=== PATIENT | female | born 2000 | race Caucasian/White ===

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

== ENCOUNTER 2022-08-05 11:46 | Inpatient (IN) ==
[~2022-08-05 11:46] MED LIST: Succinylcholine 200 mg VIAL 20 mg/ml 10 ml VIAL (200 mg) ONE
[2022-08-05] MEDS ORDERED: NS 0.9% 1000 ml BAG 1,000 ML IV ONE (12:02)
[2022-08-05] MEDS ORDERED: Naloxone 0.4 mg VIAL 0.4 mg/ml 1 ml VIAL IV PUSH ONE (12:02)
[2022-08-05 12:47] LABS: Hematocrit 39 % (31-38); Hemoglobin 12.4 g/dL (10.3-14.1); Mean Corpuscular HGB Conc 32 g/dL (32-37); Mean Corpuscular Hemoglobin 33 pg (24-30); Mean Corpuscular Volume 102 fL (68-85); Mean Platelet Volume 7.7 fL (7.4-10.4); Platelet Count 324 10^3/uL (150-450); Red Blood Count 3.81 10^6 /uL (3.97-5.01); Red Cell Distribution Width 13 % (10-15); White Blood Count 32.6 10^3/uL (5.0-17.5)
[2022-08-05] MEDS ORDERED: Piperacillin/Tazobac ADVAN 3.375 GM in NS 0.9% 100 ml BAG 100 ML IV ONE ×2 (12:51→16:19)
[2022-08-05 12:59] LABS: PCO2 Arterial 51 mmHg (35-45); PO2 Arterial 113 mmHg (80-100)
[2022-08-05] MEDS ORDERED: Norepinephrine 16MCG/ML BAGD5W 0 MCG/0 ML BAG IV ONE (13:03)
[2022-08-05] MEDS ORDERED: Norepinephrine 16MCG/ML BAG NS 4,000 MCG/250 ML BAG IV ONE (13:04)
[2022-08-05 13:06] LABS: Urine Benzodiazepine Screen Presumptive Positive (None Detect); Urine Cannabinoids Screen Presumptive Positive (None Detect); Urine Opiates Screen None Detected (None Detect)
[2022-08-05 13:11] LABS: AST 667 U/L (13-39); Albumin 3.2 g/dL (3.2-5.2); Albumin/Globulin Ratio 1.6 (1-3); Alkaline Phosphatase 111 U/L (122-469); Anion Gap 20 mmol/L (2-11); Blood Urea Nitrogen 17 mg/dL (6-24); CO2 Carbon Dioxide 17 mmol/L (23-33); Calcium 8.1 mg/dL (8.6-10.3); Chloride 99 mmol/L (101-111); Glucose 459 mg/dL (70-100); Sodium 136 mmol/L (130-145); Total Protein 5.2 g/dL (6.4-8.9)
[2022-08-05 13:12] LABS: High Sens Troponin Baseline 1464 pg/mL (<15)
[2022-08-05] MEDS ORDERED: Sodium Bicarbonate 8.4% SYR 50 ml SYRINGE ONE (13:15)
[2022-08-05 13:29] LABS: RBC Morphology Normal (Normal)
[2022-08-05 13:30] LABS: ABS Basophils 0.1 10^3/ul (0-0.2); ABS Eosinophils 0.1 10^3/ul (0-0.6); ABS Lymphocytes 5.3 10^3/ul (4.0-13.5); ABS Neutrophils 25.1 10^3/ul (1.0-8.5); Eosinophil % 0.3 %; Lymphocyte % 16.4 %; Nucleated Red Blood Cells % 0.1
[2022-08-05] MEDS ORDERED: Vasopressin 100 UNITS in D5W 250 ml BAG 245 ML IV SCH (13:30)
[2022-08-05] MEDS: Sodium Bicarbonate 8.4% SYR 50 ml SYRINGE IV ONE ×3 (13:45→13:47)
[2022-08-05] MEDS ORDERED: fentaNYL 100 mcg/2 ml 50 MCG/ML VIAL ONE (13:49)
[2022-08-05] MEDS ORDERED: Propofol 10 mg/ml 100 ML BTL 100 ML ONE (13:53)
[2022-08-05] MEDS ORDERED: Norepinephrine 16MCG/ML BAG NS 4,000 MCG/250 ML BAG IV SCH (14:00)
[2022-08-05] MEDS ORDERED: Sodium Bicarb 8.4% Vial 50 ML 150 MEQ in D5W 1000 ml BAG 850 ML IV SCH (14:00)
[2022-08-05] MEDS ORDERED: fentaNYL 100 mcg/2 ml 50 MCG/ML VIAL IV SLOW PU ONE (14:14)
[2022-08-05] MEDS ORDERED: Norepinephrine 16MCG/ML BAGD5W 4,000 MCG/250 ML BAG IV ONE (14:46)
[2022-08-05 14:51] LABS: ALT 910 U/L (7-52)
[2022-08-05] MEDS ORDERED: Hydrocortisone INJ 250 MG VIAL IV ONE (15:02)
[2022-08-05] MEDS ORDERED: Propofol 10 MG/ML 20 ML BTL IV PUSH ONE (15:12)
[2022-08-05 15:35] LABS: PCO2 Arterial 52 mmHg (35-45); PO2 Arterial 112 mmHg (80-100)
[2022-08-05 15:39] LABS: Hematocrit 44 % (35-47); Hemoglobin 13.9 g/dL (12.0-16.0); Mean Corpuscular HGB Conc 32 g/dL (31-36); Mean Corpuscular Hemoglobin 31 pg (27-31); Mean Corpuscular Volume 98 fL (80-97); Mean Platelet Volume 7.7 fL (7.4-10.4); Platelet Count 334 10^3/uL (150-450); Red Blood Count 4.46 10^6 /uL (3.70-4.87); Red Cell Distribution Width 12 % (10-15); White Blood Count 47.6 10^3/uL (3.5-10.8)
[2022-08-05 16:00] LABS: High Sensitivity Troponin 1 Hr 2052 pg/mL (<15)
[2022-08-05] MEDS ORDERED: PHENYLEPHRINE DRIP IVPREMIX 50 MG/250 ML BAG IV SCH (16:00)
[2022-08-05] MEDS ORDERED: Hydrocortisone INJ 100 MG/2ML 2 ML VIAL IV ONE (16:00)
[2022-08-05] MEDS ORDERED: Hydrocortisone INJ 100 MG/2ML 2 ML VIAL IV SCH (16:00)
[2022-08-05 16:08] LABS: Acetaminophen < 15 mcg/mL; Salicylate < 2.50 mg/dL (<30)
[2022-08-05] MEDS: Propofol 10 mg/ml 100 ML BTL 100 ML IV SCH ×2 (16:09→20:04)
[2022-08-05 16:22] LABS: RBC Morphology Normal (Normal)
[2022-08-05 16:23] LABS: ABS Basophils 0.2 10^3/ul (0-0.2); ABS Eosinophils 0.2 10^3/ul (0-0.6); ABS Lymphocytes 4.6 10^3/ul (1.0-4.8); ABS Monocytes 1.8 10^3/ul (0-0.8); ABS Neutrophils 40.7 10^3/ul (1.5-7.7); ABS Nucleated RBC 0.1 10^3/ul; Eosinophil % 0.4 %; Lymphocyte % 9.7 %; Nucleated Red Blood Cells % 0.2
[2022-08-05] MEDS: Pantoprazole VIAL 40 MG VIAL IV SCH (16:49)
[2022-08-05] MEDS: Heparin 5000 UNITS/ML 1 mL VIAL SUBCUT SCH (16:50)
[2022-08-05] MEDS: Norepinephrine *QUAD STRENGTH* 16 mg/250 mL NS per protocol IV SCH ×2 (16:51→23:22)
[2022-08-05] MEDS ORDERED: fentaNYL INFUSION 50 mcg/mL VL 2,500 MCG/50 ML VIAL IV SCH (17:00)
[2022-08-05] MEDS ORDERED: Zosyn per Pharmacy NOTE FOLLOW UP SCH (17:00)
[2022-08-05] MEDS ORDERED: D5LR 1000 ml BAG 1,000 ML IV SCH (18:00)
[2022-08-05] MEDS: Linezolid 600 MG IVPREMIX(*) 600 MG/300 ML BAG IVPB SCH (18:26)
[2022-08-05 18:39] LABS: Albumin 3.2 g/dL (3.2-5.2); Albumin/Globulin Ratio 1.4 (1-3); Alkaline Phosphatase 135 U/L (35-149); Blood Urea Nitrogen 20 mg/dL (6-24); Calcium 7.4 mg/dL (8.6-10.3); Chloride 104 mmol/L (101-111); Globulin 2.3 g/dL (2-4); Glucose 216 mg/dL (70-100); Total Protein 5.5 g/dL (6.4-8.9); eGFR CKD-EPI 40.9 (>60)
[2022-08-05 18:55] LABS: ALT 2098 U/L (7-52); Anion Gap 29 mmol/L (2-11); CO2 Carbon Dioxide 14 mmol/L (22-32); Sodium 147 mmol/L (135-145)
[2022-08-05 19:52] LABS: PCO2 Arterial 42 mmHg (35-45); PO2 Arterial 119 mmHg (80-100)
[2022-08-05] MEDS: ZOSYN 3.375 GM Q8H per EXTENDED INFUSION IV SCH (20:29)
[2022-08-05 22:50] LABS: Magnesium 1.9 mg/dL (1.9-2.7); Phosphorus 5.7 mg/dL (2.5-5.0)
[2022-08-06] MEDS: Heparin 5000 UNITS/ML 1 mL VIAL SUBCUT SCH ×4 (00:27→21:04)
[2022-08-06] MEDS: Hydrocortisone INJ 100 MG/2ML 2 ML VIAL IV SCH ×4 (00:27→21:03)
[2022-08-06] MEDS: D5LR 1000 ml BAG 1,000 ML IV SCH ×2 (02:05→05:59)
[2022-08-06] MEDS: Propofol 10 mg/ml 100 ML BTL 100 ML IV SCH ×2 (03:40→15:55)
[2022-08-06 04:06] LABS: Hematocrit 43 % (35-47); Hemoglobin 14.2 g/dL (12.0-16.0); Mean Corpuscular HGB Conc 33 g/dL (31-36); Mean Corpuscular Hemoglobin 32 pg (27-31); Mean Corpuscular Volume 95 fL (80-97); Mean Platelet Volume 7.7 fL (7.4-10.4); Platelet Count 285 10^3/uL (150-450); Red Cell Distribution Width 12 % (10-15); White Blood Count 53.9 10^3/uL (3.5-10.8)
[2022-08-06 04:40] LABS: RBC Morphology Normal (Normal)
[2022-08-06 04:41] LABS: ABS Basophils 0.4 10^3/ul (0-0.2); ABS Eosinophils 0.2 10^3/ul (0-0.6); ABS Lymphocytes 2.7 10^3/ul (1.0-4.8); ABS Monocytes 1.4 10^3/ul (0-0.8); ABS Neutrophils 49.3 10^3/ul (1.5-7.7); ABS Nucleated RBC 0.1 10^3/ul; Eosinophil % 0.4 %; Nucleated Red Blood Cells % 0.1
[2022-08-06] MEDS: ZOSYN 3.375 GM Q8H per EXTENDED INFUSION IV SCH ×3 (04:57→20:04)
[2022-08-06 04:58] LABS: Albumin 3.3 g/dL (3.2-5.2); Albumin/Globulin Ratio 1.5 (1-3); Alkaline Phosphatase 86 U/L (35-149); Blood Urea Nitrogen 30 mg/dL (6-24); CO2 Carbon Dioxide 20 mmol/L (22-32); Calcium 7.2 mg/dL (8.6-10.3); Chloride 100 mmol/L (101-111); Globulin 2.2 g/dL (2-4); Glucose 199 mg/dL (70-100); Magnesium 1.9 mg/dL (1.9-2.7); Sodium 141 mmol/L (135-145); Total Protein 5.5 g/dL (6.4-8.9)
[2022-08-06 05:00] LABS: Anion Gap 21 mmol/L (2-11)
[2022-08-06] MEDS: Linezolid 600 MG IVPREMIX(*) 600 MG/300 ML BAG IVPB SCH ×2 (05:02→16:15)
[2022-08-06 06:43] LABS: Phosphorus 4.8 mg/dL (2.5-5.0); Potassium Redraw 4.5 mmol/L (3.5-5.0)
[2022-08-06] MEDS ORDERED: Magnesium Sulfate IV 1GM/100ML 1 GM/100 ML BAG IV ONE (07:56)
[2022-08-06] MEDS ORDERED: Meperidine 50 mg/ml SYRINGE 1 ml IV ONE ×2 (09:27→15:21)
[2022-08-06 09:30] LABS: ALT 2926 U/L (7-52)
[2022-08-06] MEDS: Pantoprazole VIAL 40 MG VIAL IV SCH (09:39)
[2022-08-06 09:42] LABS: PCO2 Arterial 46 mmHg (35-45); PO2 Arterial 184 mmHg (80-100)
[2022-08-06 09:45] LABS: Hematocrit 39 % (35-47); Hemoglobin 12.7 g/dL (12.0-16.0); Mean Corpuscular HGB Conc 33 g/dL (31-36); Mean Corpuscular Hemoglobin 31 pg (27-31); Mean Corpuscular Volume 94 fL (80-97); Mean Platelet Volume 7.8 fL (7.4-10.4); Platelet Count 214 10^3/uL (150-450); Red Blood Count 4.12 10^6 /uL (3.70-4.87); Red Cell Distribution Width 12 % (10-15); White Blood Count 47.7 10^3/uL (3.5-10.8)
[2022-08-06] MEDS: Lactated Ringers 1000 ml BAG 1,000 ML IV SCH ×2 (09:48→23:11)
[2022-08-06 09:50] LABS: Urine Appearance Cloudy; Urine Bilirubin Negative (Negative); Urine Color Yellow; Urine Glucose Negative (Negative); Urine Ketones Negative (Negative); Urine Specific Gravity 1.015 (1.005-1.030)
[2022-08-06 09:51] LABS: Urine Nitrite Negative (Negative); Urine Protein Trace (Negative); Urine Urobilinogen 0.2 (Negative) (Negative)
[2022-08-06 09:54] LABS: INR 1.65 (0.89-1.11)
[2022-08-06 10:00] LABS: Urine Amorphous Crystals Present (Absent); Urine Bacteria 1+ (Absent); Urine Red Blood Cell 3+(>10/hpf) (Absent); Urine Squamous Epithelial Cell Present (Absent); Urine Uric Acid Crystals Present (Absent); Urine White Blood Cell 2+(11-20/hpf) (Absent)
[2022-08-06 10:16] LABS: Albumin/Globulin Ratio 1.4 (1-3); Calcium 7.3 mg/dL (8.6-10.3); Globulin 2.2 g/dL (2-4); Potassium 4.2 mmol/L (3.5-5.0); Total Bilirubin 0.9 mg/dL (0.2-1.0); Total Protein 5.2 g/dL (6.4-8.9); eGFR CKD-EPI 40.1 (>60)
[2022-08-06 10:32] LABS: ABS Eosinophils 0.1 10^3/ul (0-0.6); ABS Lymphocytes 1.4 10^3/ul (1.0-4.8); ABS Monocytes 1.2 10^3/ul (0-0.8); ABS Neutrophils 44.9 10^3/ul (1.5-7.7); Eosinophil % 0.3 %
[2022-08-06] MEDS: Chlorhexidine MOUTHWASH 0.12% 15 ML UDC SWISH SPIT SCH ×3 (11:49→19:36)
[2022-08-06] MEDS ORDERED: fentaNYL INFUSION 50 mcg/mL VL 2,500 MCG/50 ML VIAL IV SCH (15:29)
[2022-08-06 17:05] LABS: Albumin 3.2 g/dL (3.2-5.2); Albumin/Globulin Ratio 1.5 (1-3); Calcium 7.4 mg/dL (8.6-10.3); Globulin 2.1 g/dL (2-4); Potassium 4.1 mmol/L (3.5-5.0); Total Bilirubin 1.2 mg/dL (0.2-1.0); Total Protein 5.3 g/dL (6.4-8.9); eGFR CKD-EPI 39.3 (>60)
[2022-08-07] MEDS: Chlorhexidine MOUTHWASH 0.12% 15 ML UDC SWISH SPIT SCH ×7 (00:45→23:37)
[2022-08-07] MEDS: Propofol 10 mg/ml 100 ML BTL 100 ML IV SCH ×3 (02:28→15:37)
[2022-08-07 02:39] LABS: Calcium 7.4 mg/dL (8.6-10.3); Magnesium 2.2 mg/dL (1.9-2.7); Potassium 4.6 mmol/L (3.5-5.0); eGFR CKD-EPI 42.8 (>60)
[2022-08-07] MEDS: ZOSYN 3.375 GM Q8H per EXTENDED INFUSION IV SCH ×3 (03:59→19:33)
[2022-08-07] MEDS: Linezolid 600 MG IVPREMIX(*) 600 MG/300 ML BAG IVPB SCH ×2 (04:00→16:46)
[2022-08-07 04:05] LABS: Hematocrit 31 % (35-47); Hemoglobin 10.6 g/dL (12.0-16.0); Mean Corpuscular HGB Conc 34 g/dL (31-36); Mean Corpuscular Hemoglobin 31 pg (27-31); Mean Corpuscular Volume 93 fL (80-97); Mean Platelet Volume 8.1 fL (7.4-10.4); Platelet Count 187 10^3/uL (150-450); Red Blood Count 3.37 10^6 /uL (3.70-4.87); Red Cell Distribution Width 12 % (10-15); White Blood Count 38.8 10^3/uL (3.5-10.8)
[2022-08-07 04:25] LABS: ABS Basophils 0.1 10^3/ul (0-0.2); ABS Lymphocytes 1.1 10^3/ul (1.0-4.8); ABS Monocytes 1.1 10^3/ul (0-0.8); ABS Neutrophils 36.5 10^3/ul (1.5-7.7); Lymphocyte % 2.8 %
[2022-08-07 04:46] LABS: Albumin/Globulin Ratio 1.4 (1-3); Calcium 7.4 mg/dL (8.6-10.3); Globulin 2.1 g/dL (2-4); Magnesium 2.1 mg/dL (1.9-2.7); Phosphorus 5.1 mg/dL (2.5-5.0); Potassium 4.3 mmol/L (3.5-5.0); Total Protein 5.1 g/dL (6.4-8.9); eGFR CKD-EPI 41.4 (>60)
[2022-08-07] MEDS: Hydrocortisone INJ 100 MG/2ML 2 ML VIAL IV SCH (06:10)
[2022-08-07] MEDS: Heparin 5000 UNITS/ML 1 mL VIAL SUBCUT SCH ×3 (06:10→23:37)
[2022-08-07] MEDS: Pantoprazole VIAL 40 MG VIAL IV SCH (08:51)
[2022-08-07 10:16] LABS: Hematocrit 29 % (35-47); Hemoglobin 10.2 g/dL (12.0-16.0); PCO2 Arterial 43 mmHg (35-45); PO2 Arterial 136 mmHg (80-100)
[2022-08-07] MEDS: fentaNYL 100 mcg/2 ml 50 MCG/ML VIAL IV SLOW PU PRN ×3 (12:54→23:20)
[2022-08-07] MEDS: Lactated Ringers 1000 ml BAG 1,000 ML IV SCH (14:22)
[2022-08-07 15:13] LABS: Hematocrit 29 % (35-47); Hemoglobin 9.8 g/dL (12.0-16.0); PCO2 Arterial 45 mmHg (35-45); PO2 Arterial 112 mmHg (80-100)
[2022-08-08] MEDS: Propofol 10 mg/ml 100 ML BTL 100 ML IV SCH ×2 (00:17→06:51)
[2022-08-08] MEDS: fentaNYL 100 mcg/2 ml 50 MCG/ML VIAL IV SLOW PU PRN ×3 (01:54→07:56)
[2022-08-08] MEDS: Lactated Ringers 1000 ml BAG 1,000 ML IV SCH (03:46)
[2022-08-08] MEDS: ZOSYN 3.375 GM Q8H per EXTENDED INFUSION IV SCH ×3 (04:05→20:38)
[2022-08-08] MEDS: Linezolid 600 MG IVPREMIX(*) 600 MG/300 ML BAG IVPB SCH ×2 (04:07→18:10)
[2022-08-08 05:15] LABS: Hematocrit 29 % (35-47); Hemoglobin 9.3 g/dL (12.0-16.0); Mean Corpuscular HGB Conc 32 g/dL (31-36); Mean Corpuscular Hemoglobin 31 pg (27-31); Mean Corpuscular Volume 95 fL (80-97); Mean Platelet Volume 7.8 fL (7.4-10.4); Platelet Count 163 10^3/uL (150-450); Red Blood Count 3.03 10^6 /uL (3.70-4.87); Red Cell Distribution Width 12 % (10-15); White Blood Count 25.7 10^3/uL (3.5-10.8)
[2022-08-08] MEDS: Chlorhexidine MOUTHWASH 0.12% 15 ML UDC SWISH SPIT SCH ×3 (05:15→14:25)
[2022-08-08 05:54] LABS: Albumin 2.7 g/dL (3.2-5.2); Albumin/Globulin Ratio 1.4 (1-3); Calcium 7.3 mg/dL (8.6-10.3); Globulin 1.9 g/dL (2-4); Magnesium 2.5 mg/dL (1.9-2.7); Phosphorus 3.6 mg/dL (2.5-5.0); Potassium 3.3 mmol/L (3.5-5.0); Total Bilirubin 0.9 mg/dL (0.2-1.0); Total Protein 4.6 g/dL (6.4-8.9); eGFR CKD-EPI 43.8 (>60)
[2022-08-08] MEDS: Heparin 5000 UNITS/ML 1 mL VIAL SUBCUT SCH ×3 (06:36→20:38)
[2022-08-08 07:24] LABS: ABS Basophils 0.1 10^3/ul (0-0.2); ABS Lymphocytes 2.1 10^3/ul (1.0-4.8); ABS Neutrophils 22.5 10^3/ul (1.5-7.7); Nucleated Red Blood Cells % 0.1; RBC Morphology Normal (Normal)
[2022-08-08] MEDS: Pantoprazole VIAL 40 MG VIAL IV SCH (07:57)
[2022-08-08] MEDS: KCL 20 MEQ/100 ML IVPREMIX 20 MEQ/100 ML BAG IV SCH ×2 (07:57→10:24)
[2022-08-08] MEDS ORDERED: Furosemide 40 mg/4 ml IV VIAL IV ONE (09:45)
[2022-08-08] MEDS ORDERED: fentaNYL 100 mcg/2 ml 50 MCG/ML VIAL ONE (10:04)
[2022-08-08] MEDS ORDERED: fentaNYL 100 mcg/2 ml 50 MCG/ML VIAL IV SLOW PU PRN (10:20)
[2022-08-08] MEDS ORDERED: fentaNYL 100 mcg/2 ml 50 MCG/ML VIAL IV SLOW PU ONE (10:22)
[2022-08-08 10:38] LABS: Body Fluid Source Broncheoalveolar lav
[2022-08-08 12:45] LABS: PCO2 Arterial 43 mmHg (35-45); PO2 Arterial 129 mmHg (80-100)
[2022-08-08 13:12] LABS: Body Fluid Appearance Cloudy; Body Fluid Color Pink
[2022-08-08 13:28] LABS: Body Fluid Other Cells 35; Body Fluid Total Cells Counted 300
[2022-08-08] MEDS: Acetaminophen IV 1 GM/100ML 1,000 MG/100 ML BAG IV PRN (20:47)
[2022-08-09] MEDS: Linezolid 600 MG IVPREMIX(*) 600 MG/300 ML BAG IVPB SCH (03:39)
[2022-08-09] MEDS: ZOSYN 3.375 GM Q8H per EXTENDED INFUSION IV SCH ×3 (03:39→20:49)
[2022-08-09] MEDS: Heparin 5000 UNITS/ML 1 mL VIAL SUBCUT SCH ×3 (06:04→20:49)
[2022-08-09 06:18] LABS: ABS Basophils 0.1 10^3/ul (0-0.2); ABS Lymphocytes 1.6 10^3/ul (1.0-4.8); ABS Monocytes 0.7 10^3/ul (0-0.8); ABS Neutrophils 10.3 10^3/ul (1.5-7.7); Eosinophil % 0.1 %; Hematocrit 28 % (35-47); Hemoglobin 9.1 g/dL (12.0-16.0); Lymphocyte % 12.5 %; Mean Corpuscular HGB Conc 33 g/dL (31-36); Mean Corpuscular Hemoglobin 31 pg (27-31); Mean Corpuscular Volume 95 fL (80-97); Mean Platelet Volume 7.6 fL (7.4-10.4); Platelet Count 129 10^3/uL (150-450); Red Blood Count 2.94 10^6 /uL (3.70-4.87); Red Cell Distribution Width 12 % (10-15); White Blood Count 12.7 10^3/uL (3.5-10.8)
[2022-08-09] MEDS: Acetaminophen IV 1 GM/100ML 1,000 MG/100 ML BAG IV PRN (06:25)
[2022-08-09 06:50] LABS: Calcium 7.6 mg/dL (8.6-10.3); Magnesium 2.4 mg/dL (1.9-2.7); Potassium 3.1 mmol/L (3.5-5.0); eGFR CKD-EPI 53.8 (>60)
[2022-08-09] MEDS: KCL 20 MEQ/100 ML IVPREMIX 20 MEQ/100 ML BAG IV SCH ×3 (08:27→13:43)
[2022-08-09] MEDS: Pantoprazole VIAL 40 MG VIAL IV SCH (08:27)
[2022-08-09 08:51] LABS: Albumin 2.9 g/dL (3.2-5.2); Direct Bilirubin 0.7 mg/dL (0.03-0.18); Indirect Bilirubin 0.8 mg/dL (0.3-1.0); Total Bilirubin 1.5 mg/dL (0.2-1.0)
[2022-08-09 08:55] LABS: Albumin/Globulin Ratio 1.5 (1-3); Globulin 1.9 g/dL (2-4); Phosphorus 3.1 mg/dL (2.5-5.0); Total Protein 4.8 g/dL (6.4-8.9)
[2022-08-09] MEDS ORDERED: Benzocaine/Menthol LOZ PO PRN (18:36)
[2022-08-10 04:33] LABS: ABS Eosinophils 0.1 10^3/ul (0-0.6); ABS Lymphocytes 1.8 10^3/ul (1.0-4.8); ABS Monocytes 0.5 10^3/ul (0-0.8); ABS Neutrophils 6.8 10^3/ul (1.5-7.7); Eosinophil % 0.9 %; Hematocrit 38 % (35-47); Hemoglobin 12.2 g/dL (12.0-16.0); Lymphocyte % 19.6 %; Mean Corpuscular HGB Conc 32 g/dL (31-36); Mean Corpuscular Hemoglobin 31 pg (27-31); Mean Corpuscular Volume 96 fL (80-97); Mean Platelet Volume 8.3 fL (7.4-10.4); Nucleated Red Blood Cells % 0.1; Platelet Count 104 10^3/uL (150-450); Red Blood Count 3.92 10^6 /uL (3.70-4.87); Red Cell Distribution Width 12 % (10-15); White Blood Count 9.2 10^3/uL (3.5-10.8)
[2022-08-10 04:50] LABS: Albumin 2.9 g/dL (3.2-5.2); CO2 Carbon Dioxide 22 mmol/L (22-32); Calcium 7.8 mg/dL (8.6-10.3); Chloride 109 mmol/L (101-111); Magnesium 2.4 mg/dL (1.9-2.7); Sodium 139 mmol/L (135-145)
[2022-08-10 04:52] LABS: Anion Gap 8 mmol/L (2-11)
[2022-08-10 04:56] LABS: Albumin/Globulin Ratio 1.5 (1-3); Alkaline Phosphatase 54 U/L (35-149); Blood Urea Nitrogen 27 mg/dL (6-24); Glucose 69 mg/dL (70-100); Total Protein 4.9 g/dL (6.4-8.9); eGFR CKD-EPI 67.8 (>60)
[2022-08-10 05:30] LABS: ALT 712 U/L (7-52)
[2022-08-10] MEDS: ZOSYN 3.375 GM Q8H per EXTENDED INFUSION IV SCH ×3 (06:00→19:42)
[2022-08-10] MEDS: Heparin 5000 UNITS/ML 1 mL VIAL SUBCUT SCH ×3 (06:01→20:18)
[2022-08-10] MEDS ORDERED: Potassium Chlor 20 meq TAB.ER PO ONE (13:26)
[2022-08-11] MEDS: ZOSYN 3.375 GM Q8H per EXTENDED INFUSION IV SCH ×2 (05:01→11:56)
[2022-08-11] MEDS: Heparin 5000 UNITS/ML 1 mL VIAL SUBCUT SCH ×3 (06:44→22:45)
[2022-08-11 07:55] LABS: Hematocrit 28 % (35-47); Hemoglobin 9.7 g/dL (12.0-16.0); Mean Corpuscular HGB Conc 35 g/dL (31-36); Mean Corpuscular Hemoglobin 33 pg (27-31); Mean Corpuscular Volume 94 fL (80-97); Mean Platelet Volume 7.7 fL (7.4-10.4); Platelet Count 153 10^3/uL (150-450); Red Blood Count 2.99 10^6 /uL (3.70-4.87); Red Cell Distribution Width 12 % (10-15); White Blood Count 11.5 10^3/uL (3.5-10.8)
[2022-08-11 07:58] LABS: ABS Basophils 0.1 10^3/ul (0-0.2); ABS Eosinophils 0.2 10^3/ul (0-0.6); ABS Neutrophils 8.1 10^3/ul (1.5-7.7); Eosinophil % 1.6 %; Lymphocyte % 17.5 %
[2022-08-11 08:37] LABS: Albumin 3.1 g/dL (3.2-5.2); Albumin/Globulin Ratio 1.4 (1-3); Calcium 8.2 mg/dL (8.6-10.3); Globulin 2.2 g/dL (2-4); Total Bilirubin 0.7 mg/dL (0.2-1.0); Total Protein 5.3 g/dL (6.4-8.9); eGFR CKD-EPI 95.1 (>60)
[2022-08-12] MEDS: Heparin 5000 UNITS/ML 1 mL VIAL SUBCUT SCH (06:08)
[2022-08-12 10:17] LABS: Hematocrit 33 % (35-47); Mean Corpuscular HGB Conc 34 g/dL (31-36); Mean Corpuscular Hemoglobin 32 pg (27-31); Mean Corpuscular Volume 96 fL (80-97); Red Blood Count 3.41 10^6 /uL (3.70-4.87); Red Cell Distribution Width 12 % (10-15)
[2022-08-12 10:54] LABS: Calcium 8.7 mg/dL (8.6-10.3); eGFR CKD-EPI 120.7 (>60)
[2022-08-12 11:00] LABS: HCG Pregnancy 165.36 mIU/mL
[2022-08-12 12:24] LABS: ABS Eosinophils 0.4 10^3/ul (0-0.6); ABS Lymphocytes 2.3 10^3/ul (1.0-4.8); ABS Monocytes 1.3 10^3/ul (0-0.8); Eosinophil % 3.3 %; Lymphocyte % 20.5 %; Mean Platelet Volume 8.1 fL (7.4-10.4); Platelet Count 185 10^3/uL (150-450)
[2022-08-12 12:34] VITALS: BP 141/91
[2022-08-12] MEDS ORDERED: Magic MouthWash2-BEN/MAAL/LIDO/NYST 240 ML BTL (alt formulation) SWISH SPIT SCH (13:00)
[2022-08-12 14:46] LABS: Albumin 3.5 g/dL (3.2-5.2); Albumin/Globulin Ratio 1.5 (1-3); Direct Bilirubin 0.2 mg/dL (0.03-0.18); Globulin 2.4 g/dL (2-4); Indirect Bilirubin 0.6 mg/dL (0.3-1.0); Total Bilirubin 0.8 mg/dL (0.2-1.0); Total Protein 5.9 g/dL (6.4-8.9)
== END 2022-08-12 16:00 | disposition home or self-care (01) | DRG 950 ==
LOC: EDBD → MERGE 11:46 → ED 11:46 → EDHOLD 13:57 → SUATTDRO 13:57 → ICU 15:03 → MEDTELE 08-10 21:06
PROVIDERS: ADMIT Internal Medicine; ATTEND Family Medicine

== ENCOUNTER 2024-04-26 20:40 | Inpatient (IN) ==
[2024-04-26 21:59] LABS: ABS Basophils 0.1 10^3/uL (0.0-0.1); ABS Eosinophils 0.1 10^3/uL (0.0-0.5); ABS Lymphocytes 2.8 10^3/uL (1.0-4.8); ABS Monocytes 0.9 10^3/uL (0.0-0.9); ABS Neutrophils 4.9 10^3/uL (1.5-7.6); ABS Nucleated RBC 0.01 10^3/ul; Eosinophil % 1.6 %; Hematocrit 41.6 % (35-45); Lymphocyte % 31.3 %; Mean Corpuscular Hemoglobin 31.8 pg (27-33); Mean Corpuscular Hgb Conc 33.6 g/dL (31-36); Mean Corpuscular Volume 94.8 fL (80-97); Mean Platelet Volume 7.3 fL (7.5-11.2); Nucleated Red Blood Cells % 0.1 %/100WBC (0.0-0.8); Platelet Count 324 10^3/uL (150-450); Red Blood Count 4.39 10^6/uL (3.63-4.92); Red Cell Distribution Width 12.7 % (12-17); White Blood Count 8.9 10^3/uL (3.8-11.8)
[2024-04-26 22:02] LABS: Urine Appearance Clear; Urine Bilirubin Negative (Negative); Urine Blood 3+ (Negative); Urine Color Light-Yellow; Urine Glucose Negative (Negative); Urine Ketones Negative (Negative); Urine Nitrite Negative (Negative); Urine Protein Negative (Negative); Urine Specific Gravity 1.009 (1.002-1.030); Urine Urobilinogen Negative (Negative)
[2024-04-26 22:12] LABS: Urine Bacteria 1+ /HPF (Absent); Urine Red Blood Cell 3+(>10/hpf) /HPF (0-Trace); Urine Squamous Epithelial Cell Present /HPF (Absent); Urine White Blood Cell Trace(0-5/hpf) /HPF (0-Trace)
[2024-04-26 22:19] LABS: Urine Benzodiazepine Screen None Detected (None Detect); Urine Cannabinoids Screen Presumptive Positive (None Detect); Urine Opiates Screen None Detected (None Detect)
[2024-04-26 22:53] LABS: ALT 23 U/L (7-52); AST 19 U/L (13-39); Acetaminophen < 15 mcg/mL; Albumin 4.4 g/dL (3.2-5.2); Albumin/Globulin Ratio 1.6 (1-3); Alcohol, S < 13 mg/dL (<13); Alkaline Phosphatase 68 U/L (35-149); Anion Gap 8 mmol/L (2-16); Blood Urea Nitrogen 8 mg/dL (6-24); CO2 Carbon Dioxide 24 mmol/L (22-32); Calcium 9.6 mg/dL (8.6-10.3); Chloride 103 mmol/L (101-111); Creatinine, Serum 0.59 mg/dL (0.51-0.95); Globulin 2.8 g/dL (2-4); Glucose 95 mg/dL (70-100); Potassium 3.6 mmol/L (3.5-5.0); Salicylate < 2.50 mg/dL (<30); Sodium 135 mmol/L (135-145); Total Bilirubin 1.7 mg/dL (0.2-1.0); Total Protein 7.2 g/dL (6.4-8.9); eGFR CKD-EPI 130.6 (>60)
[2024-04-26 22:59] LABS: HCG Pregnancy < 0.60 mIU/mL
[2024-04-27] MEDS ORDERED: Al Hydrox/Mg Hydrox/Simet LIQ 30 ML UDC PO PRN ×2 (08:37→09:08)
[2024-04-27] MEDS: Multivitamins/Minerals TAB PO SCH (10:46)
[2024-04-28 09:44] LABS: HDL Cholesterol 68.6 mg/dL
[2024-05-03 09:32] VITALS: BP 102/69
== END 2024-05-03 11:14 | disposition home or self-care (01) | DRG 753 ==
LOC: ED 20:40 → EDHOLD 04-27 08:27 → BSU 04-27 08:43
PROVIDERS: ADMIT Psychiatry & Neurology Psychiatry; ATTEND Psychiatry & Neurology Psychiatry